=== PATIENT | female | born 2005 | race Two or more races ===

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

== ENCOUNTER 2024-06-22 02:30 | Emergency (ER) | payer MEDICAID ==
[2024-06-22 02:38] VITALS: BP 112/68; PULSE 86
[2024-06-22] MEDS: Acetaminophen/oxyCODONE 325-5 MG Tab PO ONE (03:05)
== END 2024-06-22 03:27 | disposition home or self-care (01) ==
LOC: JP.ED 02:30
DX: H66.93 Otitis media, unspecified, bilateral (principal); H60.93 Unspecified otitis externa, bilateral; J45.909 Unspecified asthma, uncomplicated; Z79.899 Other long term (current) drug therapy; Z79.51 Long term (current) use of inhaled steroids; Z88.0 Allergy status to penicillin; Z88.1 Allergy status to other antibiotic agents; Z91.048 Other nonmedicinal substance allergy status
CPT/HCPCS: 99282; A9270